=== PATIENT | female | born 1975 | race Caucasian/White ===

== ENCOUNTER 2019-11-04 11:15 | Emergency (ER) | payer BC ==
[~2019-11-04] VITALS: Ht 162.6 cm; Wt 102.5 kg
[2019-11-04] MEDS ORDERED: IV NORMAL SALINE 1,000ML 1,000 ML IV SCH (11:32)
[2019-11-04 11:37] VITALS: BP 126/72
[2019-11-04] MEDS ORDERED: LIDO:MAALOX 1:1 20 ML SINGLE DOSE. PO ONE (11:45)
[2019-11-04] MEDS ORDERED: ASPIRIN 81 MG TAB.CHEW PO ONE (11:45)
--- NOTE | 2019-11-04 11:46 | PHYS DOC ---
Past History Past Medical History: Bipolar, Hypertension Smoking: Cigarettes (currently is vaping, not smoking) Adult General Chief Complaint Chief Complaint: CHEST PAIN HPI HPI Patient is a 44-year-old female who presents to the emergency department for evaluation. She states that for the past 4 days, she has had some anterior chest discomfort, which she felt initially was heartburn, she states that she has taken Tums, without improvement in her symptoms. She became concerned about her chest discomfort because she has read that women can have atypical symptoms with cardiac issues. She denies any significant shortness of breath, nausea, vomiting, diaphoresis, or pleuritic pain. She has had diarrhea for the past several days as well. She states that belching will sometimes improve her symptoms. There are no alleviating factors to her symptoms. The patient has seen a supervisor cell maintenance at [facility], although is uncertain why, and is uncertain what heart trouble she has, as far she knows she has none. Her HEART score is a 2, assuming her troponin is normal. Review of Systems Review of Systems Constitutional: Denies fever or chills [] Eyes: Denies change in visual acuity, redness, or eye pain [] HENT: Denies nasal congestion or sore throat [] Respiratory: Denies cough or shortness of breath [] Cardiovascular: No additional information not addressed in HPI [] GI: Denies abdominal pain, nausea, vomiting, bloody stools or diarrhea [] : Denies dysuria or hematuria [] Musculoskeletal: Denies back pain or joint pain [] Integument: Denies rash or skin lesions [] Neurologic: Denies headache, focal weakness or sensory changes [] Endocrine: Denies polyuria or polydipsia [] All other systems were reviewed and found to be within normal limits, except as documented in this note. Current Medications Current Medications Current Medications Medications (Trade) Dose Ordered Sig/Amando Start Time Stop Time Status Last Admin Dose Admin Aspirin (Children'S Aspirin) 324 mg 1X ONCE 11/04/19 11:45 11/04/19 11:46 Multi-Ingredient Mouthwash/Gargle (Gi Cocktail) 20 ml 1X ONCE 11/04/19 11:45 11/04/19 11:46 Sodium Chloride 1,000 ml @ 1,000 mls/hr Q1H 11/04/19 11:32 12/4/19 12:31 Allergies Allergies Allergies Coded Allergies Type Severity Reaction Last Updated Verified Penicillins Allergy Unknown 11/04/19 Yes Physical Exam Physical Exam PHYSICAL EXAM: CONSTITUTIONAL: Well developed, well nourished HEAD: normocephalic, atraumatic EENT: PERRL, EOMI. Conjunctivae normal color, sclerae non-icteric; moist mucous membranes. NECK: Supple, non-tender; no meningismus. LUNGS: Lungs CTA, breathing even and unlabored. Normal air movement. HEART: Regular rate and rhythm, no murmur CHEST: No deformity; there is mild tenderness to palpation diffusely on the anterior chest. ABDOMEN: The abdomen is soft, and non-tender, no masses or bruits. EXTREM: Normal ROM; no deformity, no calf tenderness. Normal pulses palpable in all extremities. There is no pedal edema. SKIN: No rash; no diaphoresis NEURO: Alert; normal speech and cognition; CN's grossly intact; strength grossly intact without focal deficit. BACK: No CVA TTP. PSYCHIATRIC: Mildly flat affect, denies SI or HI. Current Patient Data Lab Results Laboratory Tests Test 11/04/19 11:22 White Blood Count 6.1 x10^3/uL Red Blood Count 4.93 x10^6/uL Hemoglobin 14.5 g/dL Hematocrit 43.8 % Mean Corpuscular Volume 89 fL Mean Corpuscular Hemoglobin 29 pg Mean Corpuscular Hemoglobin Concent 33 g/dL Red Cell Distribution Width 16.3 % Platelet Count 364 x10^3/uL Neutrophils (%) (Auto) 51 % Lymphocytes (%) (Auto) 31 % Monocytes (%) (Auto) 14 % Eosinophils (%) (Auto) 4 % Basophils (%) (Auto) 0 % Neutrophils # (Auto) 3.1 x10^3uL Lymphocytes # (Auto) 1.9 x10^3/uL Monocytes # (Auto) 0.8 x10^3/uL Eosinophils # (Auto) 0.2 x10^3/uL Basophils # (Auto) 0.0 x10^3/uL Sodium Level 138 mmol/L Potassium Level 3.8 mmol/L Chloride Level 101 mmol/L Carbon Dioxide Level 22 mmol/L Anion Gap 15 Blood Urea Nitrogen 8 mg/dL Creatinine 0.8 mg/dL Estimated GFR (Cockcroft-Gault) 78.3 BUN/Creatinine Ratio 10 Glucose Level 100 mg/dL Calcium Level 9.4 mg/dL Magnesium Level 1.8 mg/dL Total Bilirubin 0.3 mg/dL Aspartate Amino Transf (AST/SGOT) 25 U/L Alanine Aminotransferase (ALT/SGPT) 56 U/L Alkaline Phosphatase 55 U/L Troponin I Quantitative < 0.017 ng/mL AH-Ulz-T-Type Natriuretic Peptide 25 pg/mL Total Protein 7.6 g/dL Albumin 4.2 g/dL Albumin/Globulin Ratio 1.2 Lipase 85 U/L Current Medications Medications (Trade) Dose Ordered Sig/Amando Route PRN Reason Start Time Stop Time Status Last Admin Dose Admin Multi-Ingredient Mouthwash/Gargle (Gi Cocktail) 20 ml 1X ONCE PO 11/04/19 11:45 11/04/19 11:46 DC 11/04/19 11:52 Aspirin (Children'S Aspirin) 324 mg 1X ONCE PO 11/04/19 11:45 11/04/19 11:46 DC 11/04/19 11:52 Sodium Chloride 1,000 ml @ 1,000 mls/hr Q1H IV 11/04/19 11:32 11/04/19 12:31 DC 11/04/19 11:53 EKG EKG Normal sinus rhythm a rate of 114 beats for minute, left axis deviation, left bundle-branch block, rare PVC, there are no acute ischemic ST/T changes, within the limitations of the underlying left bundle-branch block. EKG is unchanged compared to an EKG obtained from the patient's cardiology office at [facility], from 07/22/19, the left bundle branch block was present at that time as well.[] Radiology/Procedures Radiology/Procedures PROCEDURE: PORTABLE CHEST 1V Single AP view of the chest. Comparison: None. Indication: Chest pain Findings: The heart is at the upper limits of normal. There is no pneumothorax or effusion. No air space or interstitial disease. Impression: 1. No acute cardiopulmonary process. [] Course & Med Decision Making Course & Med Decision Making Pertinent Labs and Imaging studies reviewed. (See chart for details) []12:40 PM:Patient remains stable. I discussed test results, the need for close follow-up, and return precautions. Dragon Disclaimer Dragon Disclaimer This electronic medical record was generated, in whole or in part, using a voice recognition dictation system. Departure Departure: Impression: Primary Impression: Atypical chest pain Disposition: HOME, SELF-CARE Condition: STABLE Referrals: DELBERT ACOSTA MD (PCP) Patient Instructions: Chest Pain (Nonspecific) Scripts Omeprazole (OMEPRAZOLE) 20 Mg Capsule.dr 1 CAP PO DAILY for -, #30 CAP 0 Refills Prov: ZA GLOVER MD 11/04/19 ZA GLOVER MD Nov 04, 2019 11:46
[2019-11-04 11:54] LABS: BASO % 0 % (0-3); EOS # 0.2 x10^3/uL (0.0-0.7); EOS % 4 % (0-3); HEMATOCRIT 43.8 % (36.0-47.0); HEMOGLOBIN 14.5 g/dL (12.0-15.5); LYMPH # 1.9 x10^3/uL (1.0-4.8); LYMPH % 31 % (24-48); MEAN CORPUSCULAR HEMOGLOBIN 29 pg (25-35); MEAN CORPUSCULAR HGB CONC 33 g/dL (31-37); MEAN CORPUSCULAR VOLUME 89 fL (79-100); MONO # 0.8 x10^3/uL (0.0-1.1); MONO % 14 % (0-9); NEUT # 3.1 x10^3uL (1.8-7.7); NEUT % 51 % (31-73); PLATELET COUNT 364 x10^3/uL (140-400); RED BLOOD COUNT 4.93 x10^6/uL (3.50-5.40); RED CELL DISTRIBUTION WIDTH 16.3 % (11.5-14.5); WHITE BLOOD COUNT 6.1 x10^3/uL (4.0-11.0)
[2019-11-04 12:10] LABS: ALBUMIN 4.2 g/dL (3.4-5.0); ALBUMIN/GLOBULIN RATIO 1.2 (1.0-1.7); CALCIUM 9.4 mg/dL (8.5-10.1); CREATININE 0.8 mg/dL (0.6-1.0); GFR 78.3; MAGNESIUM 1.8 mg/dL (1.8-2.4); POTASSIUM 3.8 mmol/L (3.5-5.1); TOTAL BILIRUBIN 0.3 mg/dL (0.2-1.0); TOTAL PROTEIN 7.6 g/dL (6.4-8.2)
--- NOTE | 2019-11-04 12:39 | RAD ---
Single AP view of the chest. Comparison: None. Indication: Chest pain Findings: The heart is at the upper limits of normal. There is no pneumothorax or effusion. No air space or interstitial disease. Impression: 1. No acute cardiopulmonary process. Electronically signed by: Wilberto Goodwin MD (11/04/2019 12:36 PM) [id number]
[2019-11-04] MEDS ORDERED: OMEP-229 PO (12:44)
--- NOTE | 2019-11-06 08:16 | EKG ---
[address] [address] Test Date: 2019-11-04 Test Time: 11:20:24 Pat Name: ART FOX Department: Room: Gender: F Director Voice: : [id number] Requested By: ZA GLOVER Order Number: [id number] Reading MD: Measurements Intervals Satin Rate: 114 P: 45 CT: 154 QRS: 2 QRSD: 142 T: 139 QT: 342 QTc: 475 Interpretive Statements SINUS TACHYCARDIA VENTRICULAR PREMATURE COMPLEX(ES) NON SPECIFIC INTRAVENTRICULAR BLOCK QRS(T) CONTOUR ABNORMALITY CONSISTENT WITH ANTEROSEPTAL INFARCT POSSIBLY RECENT ABNORMAL ECG RI6.01 No previous ECG available for comparison
== END 2019-11-04 13:00 | disposition home or self-care (01) ==
LOC: ER 11:15
DX: R07.89 Other chest pain (principal); I10 Essential (primary) hypertension; F31.9 Bipolar disorder, unspecified; F17.200 Nicotine dependence, unspecified, uncomplicated; Z88.0 Allergy status to penicillin
CPT/HCPCS: 36415; 71045; 80053; 83690; 83735; 83880; 84484; 85025; 93005; 99285-25; J7030